=== PATIENT | male | born 1960 | race Caucasian/White ===

== ENCOUNTER 2018-03-22 09:36 | Observation (INO) | payer BC ==
[~2018-03-22 09:36] MED LIST: NS 0.9% 1000 ML* 1,000 ML IV ONE
[2018-03-22] MEDS ORDERED: Alteplase* 100 MG VIAL ONE (09:40)
--- OUTSIDE RECORDS SUMMARY | 2018-03-22 09:44 | XMS REPORT ---
:1960 External Reference #:[id number] Author Organization [facility] Address [address] [place] [address] Phone [phone] Care Team Providers Name Role Phone Mark Anders MD Care Team Information Marketing And Communications Officer Unavailable Mark Anders MD Primary Care Physician Unavailable Payers Type Date Identification Numbers Payment Provider Subscriber Commercial Effective: Policy Number: [id number] [place] Plan Deneen Navas 2017 PayID: [id number] [address] [place] [address] Problems Description No Information Social History Type Date Description Comments Smoking Heavy tobacco smoker (more than 10 has quit for 6 mos in past , did cigarettes/day) not like chantix Allergies, Adverse Reactions, Alerts Date Description Reaction Status Severity Comments 07/20/2017 NKDA active Medications Medication Date Status Form Strength Qnty SIG Indications Ordering Provider Lisinopril Active Tablets 40mg 90tabs 1 by mouth Mark Nice 018 every day MD Martita Rosuvastatin Active Tablets 5mg 90tabs one by E78.2 Mark Nice Calcium 018 mouth Martita lopez MD night at bedtime Amlodipine 0 Active Tablets 10mg 90tabs 1 by mouth Mark Nice Besylate 000 every day MD Martita Lisinopril 0 Hx Tablets 20mg 90tabs 1 by mouth Mark Nice 000 - every day Martita MD Rocha Amlodipine 0 Hx Tablets 5mg 1 by mouth Unknown Besylate 000 - every day 018 Vital Signs Date Vital Result Comment 03/01/2018 BP Systolic 166 mmHg BP Diastolic 102 mmHg Heart Rate 90 /min Body Temperature 98.3 F Respiratory Rate 17 /min Height 72 inches 6'0" Weight 188.25 lb BMI (Body Mass Index) 25.5 kg/m2 01/29/2018 BP Systolic 162 mmHg BP Diastolic 84 mmHg Heart Rate 100 /min Body Temperature 98.4 F Respiratory Rate 16 /min Height 72 inches 6'0" Weight 190.38 lb BMI (Body Mass Index) 25.8 kg/m2 08/21/2017 BP Systolic 152 mmHg BP Diastolic 90 mmHg Heart Rate 100 /min Body Temperature 97.5 F Respiratory Rate 22 /min Height 72 inches 6'0" Weight 194.00 lb BMI (Body Mass Index) 26.3 kg/m2 07/20/2017 BP Systolic 172 mmHg BP Diastolic 74 mmHg Heart Rate 104 /min Body Temperature 97.9 F Height 72 inches 6'0" Weight 194.50 lb BMI (Body Mass Index) 26.4 kg/m2 Results Test Date Test Result H/L Range Note Laboratory test finding 03/01/2018 LDL (Direct) <pending> Laboratory test finding 03/01/2018 HDL <pending> Laboratory test finding 08/21/2017 Alt (SGPT) 34 U/L 7-35 1 LDL, Direct 137 mg/dL High 0-130 1 FASTING Procedures Description No Information Encounters Type Date Location Provider CPT E/M Dx Office Visit 01/29/2018 4:00p Main Office Mago Vanessa [address] R21 I10 Office Visit 08/21/2017 1:30p [facility] [place] [address] E78.2 I10 Office Visit 07/31/2017 2:00p [facility] [place] [address] I10 Office Visit 07/20/2017 2:00p [facility] [place] [address] I10 M79.676 E78.2 Plan of Care Future Appointment(s):09/03/2018 10:20 am - Mark Anders MD at [facility] Zimaub7203/19/2018 10:00 am - Mark Anders MD at [facility] Atjvfr9703/15/2018 10:00 am - Mark Anders MD at [facility] [id number] - Mark Anders MDI10 Essential (primary) itgyhxuwsbrpJ89.2 Mixed ocfcvptwpraltrU61.12 Lateral epicondylitis, left elbowComments:ice massage after exercise/golf.stretch as I showed you.consider aleve, ibuprofen.If this fails to help, I can do injection and get you to OT.AllNew Medication: Lisinopril 40 mgComments:~B_~U_Medication Management~b_~u_ Patient Understands medications he's taking? Yes No Are there Barriers to Adherence? Yes No Has the patient been asked about herbal supplements and therapies, and OTC meds? Yes No
[2018-03-22] MEDS ORDERED: Alteplase* 100 MG VIAL IV ONE ×2 (09:50)
[2018-03-22] MEDS ORDERED: Iodixanol* (CONTRAST) 320 MG/ML 100 ML SDV IV ONE (10:12)
--- NOTE | 2018-03-22 10:13 | RAD ---
Indication: Right-sided weakness, slurred speech. CT of the brain performed without IV contrast. No prior study is available for comparison. Ventricular structures are midline. No midline shift is noted. The extra-axial spaces are unremarkable. There is no evidence of intracranial hemorrhage. Wedge-shaped hypodense area is noted in the left frontal lobe consistent with evolving infarct. No midline shift is noted. The posterior fossa and cerebellum are otherwise unremarkable. Bony calvaria is otherwise unremarkable. IMPRESSION: No intracranial hemorrhage is noted. 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 Findings discussed with Dr. Savage at 10:10 AM.
--- NOTE | 2018-03-22 10:22 | ED ---
Neurological HPI - HPI Summary HPI Summary: This patient is a 57 year old MF BIBA to [facility] accompanied by his with a chief complaint of left sided weakness and facial droop that began this morning at 0845. Pt woke up at 0800 and noticed the sx soon after. Dr Travis is present at bedside as soon as the patient arrived in the ED, he suggested preparing TPA. Patient was brought immediately to CT scan, per his request. He is a smoker , no hx of CVA, and is not on blood thinners. Drinking etoh last night walked to bathroom drunk last night and states he had some possible CVA sx. - History of Current Complaint Chief Complaint: EDNeurologicalDeficit Stated Complaint: CODE CHIANG Time Seen by Provider: 03/22/18 09:37 Hx Obtained From: Patient Onset/Duration: Started hours ago, Still Present Timing: Constant Onset Severity: Mild Current Severity: Mild Pain Intensity: 0 Pain Scale Used: 0-10 Numeric Syncope Context: Loss of Consciousness: No Associated Signs and Symptoms: Positive: Negative - fever - Allergy/Home Medications Allergies/Adverse Reactions: Allergies Allergy/AdvReac Type Severity Reaction Status Date / Time No Known Allergies Allergy Verified 03/22/18 10:14 Home Medications: Home Medications Amlodipine Besylate [Norvasc 10 mg tab] 10 mg PO DAILY 03/22/18 [History Confirmed 03/22/18] Lisinopril 30 mg PO DAILY 03/22/18 [History Confirmed 03/22/18] PMH/Surg Hx/FS Hx/Imm Hx Endocrine/Hematology History: Denies: Hx Blood Transfusions, Hx Systemic Lupus Erythematosus, Hx Unexplained Bleeding Neurological History: Denies: Hx CVA, Hx Dementia, Hx Developmental Delay, Hx Headaches Psychiatric History: Denies: Hx Depression, Hx Inpatient Treatment Infectious Disease History: No Infectious Disease History: Denies: Traveled Outside the [place] in Last 30 Days - Social History Occupation: Employed Full-time Lives: With Family Alcohol Use: Daily Hx Substance Use: No Substance Use Type: Reports: None Hx Tobacco Use: No Smoking Status (MU): Never Smoked Tobacco Review of Systems Negative: Fever, Chills Negative: Erythema Negative: Sore Throat Negative: Chest Pain Negative: Shortness Of Breath, Cough Negative: Abdominal Pain, Vomiting, Nausea Negative: dysuria, hematuria Negative: Myalgia, Edema Negative: Rash Neurological: Negative - dizziness , Other - facial droop Positive: Weakness All Other Systems Reviewed And Are Negative: Yes Physical Exam - Summary Physical Exam Summary: Constitutional: Well-developed, Well-nourished, Alert. (-) Distressed Skin: Warm, Dry HENT: Normocephalic; Atraumatic Eyes: Conjunctiva normal Neck: Musculoskeletal ROM normal neck. (-) JVD, (-) Stridor, (-) Tracheal deviation Cardio: Rhythm regular, rate normal, Heart sounds normal; Intact distal pulses; The pedal pulses are 2+ and symmetric. Radial pulses are 2+ and symmetric. (-) Murmur Pulmonary/Chest wall: Effort normal. (-) Respiratory distress, (-) Wheezes, (-) Rales Abd: Soft. (-) Tenderness, (-) Distension, (-) Guarding, (-) Rebound Musculoskeletal: (-) Edema Lymph: (-) Cervical adenopathy Neuro: Alert, Oriented x3, Strength normal, Cranial nerves II-XII are grossly intact. (-) Dysmetria, (-) Nystagmus, (-) Ataxia by finger to nose testing, (-) Sensory deficit. Psych: Mood and affect Normal Triage Information Reviewed: Yes Vital Signs On Initial Exam: Initial Vitals Temp Pulse Resp BP Pulse Ox 98.3 F 84 20 171/97 96 03/22/18 10:19 03/22/18 10:19 03/22/18 10:19 03/22/18 10:19 03/22/18 10:19 Vital Signs Reviewed: Yes - Mckay Coma Scale Best Eye Response: 4 - Spontaneous Best Motor Response: 6 - Obeys Commands Best Verbal Response: 5 - Oriented Coma Scale Total: 15 Diagnostics - Vital Signs Vital Signs Temp Pulse Resp BP Pulse Ox 03/22/18 10:19 98.3 F 84 20 171/97 96 - Laboratory Result Diagrams: 03/22/18 10:03 03/22/18 10:03 Lab Statement: Any lab studies that have been ordered have been reviewed, and results considered in the medical decision making process. - Radiology CXR Radiology Interpretation Completed By: Radiologist - NO ACTIVE CARDIOPULMONARY DISEASE. ED physician has reviewed this radiology report. - CT CT Head CT Interpretation Completed By: Radiologist - No intracranial hemorrhage is noted. 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 Findings discussed with Dr. Savage at 10:10 AM. ED physician has reviewed this radiology report. - EKG 10:11 Cardiac Rate: NL EKG Rhythm: Sinus Rhythm - at 87 BPM EKG Interpretation: No STEMI NIH Scale - NIH Scale Level of Consciousness: Alert/Keenly Responsive Ask Patient the Month and His/Her Age: Both Correct Ask Pt to Open/Close Eyes and Synthetic Cloth Binding Cutter/Release Non-Paretic Hand: Both Correctly Best Gaze (Only Horizontal Eye Movement): Normal Visual Field Testing: No Visual Loss Facial Paresis-Pt to Smile & Close Eyes or Grimace Symmetry: Normal/Symmetrical Motor Function - Right Arm: No Drift-Holds 10 Seconds Motor Function - Left Arm: No Drift-Holds 10 Seconds Motor Function - Right Leg: No Drift-Holds 10 Seconds Motor Function - Left Leg: No Drift-Holds 10 Seconds Limb Ataxia-Must be out of Proportion to Weakness Present: Absent Sensory (Use Pinprick to Test Arms/Legs/Trunk/Face): Normal Best Language (Describe Picture, Name Items): No Aphasia Dysarthria (Read Several Words): Normal Extinction and Inattention: No Abnormality Total Score: 0 Course/Dx - Course Assessment/Plan: This patient is a 57 year old MF BIBA to [facility] accompanied by his with a chief complaint of left sided weakness and facial droop that began this morning at 0845. Pt woke up at 0800 and noticed the sx soon after. Dr Travis is present at bedside as soon as the patient arrived in the ED, he suggested preparing TPA. Patient was brought immediately to CT scan, per his request. He is a smoker, no hx of CVA, and is not on blood thinners. An EKG reveals NSR. CT head reveals, per radiologist, No intracranial hemorrhage is noted. Evidence of evolving infarct left frontal. lobe. Findings discussed with Dr. Savage at 10:10 AM. CXR reveals, per radiology, NO ACTIVE CARDIOPULMONARY DISEASE. Pt is not a TPA candidate. Alcohol intoxication limited his own recognition of his stroke. Blood work obtained. Dx CVA. 1222 We discussed patient care with Dr Leger and they accepted the patient for admission. 0959 Dr Johnson suggest not using TPA. Patient will be admitted. The patient is agreeable with this plan. - Critical Care Time Critical Care Time: 30-74 min - 35 Discharge - Sign-Out/Discharge Documenting (check all that apply): Patient Departure - admitted - Discharge Plan Condition: Fair Disposition: ADMITTED TO [facility] - Attestation Statements Document Initiated by Scribe: Yes
--- NOTE | 2018-03-22 10:37 | RAD ---
HISTORY: Stroke COMPARISONS: Head CT dated March 22, 2018 TECHNIQUE: Multiple contiguous axial CT scans were obtained of the head and neck after the administration of nonionic intravenous contrast timed to the systemic arterial phase of contrast enhancement. Coronal and sagittal multiplanar reformations are submitted for review. Multiple 3-D maximum intensity projection reconstructions are also submitted for review. FINDINGS: Evaluation is limited by suboptimal contrast opacification. CTA NECK: AORTIC ARCH: There is calcific atherosclerotic disease of the aortic arch, without ostial or proximal stenosis of the cephalic great vessels. There is a normal three-vessel branching pattern. RIGHT VERTEBRAL ARTERY: The right vertebral artery is patent along its course, without stenosis. LEFT VERTEBRAL ARTERY: The left vertebral artery is patent along its course, without stenosis. DOMINANCE: The vertebral arteries are codominant. RIGHT COMMON CAROTID ARTERY: The right common carotid artery is patent. The right carotid bifurcation occurs at C5-C6. RIGHT INTERNAL CAROTID ARTERY: There is no right internal carotid artery stenosis by NASCET criteria. RIGHT EXTERNAL CAROTID ARTERY: The right external carotid artery is unremarkable. LEFT COMMON CAROTID ARTERY: The left common carotid artery is patent. The left carotid bifurcation occurs at C6. LEFT INTERNAL CAROTID ARTERY: There is atherosclerotic plaque of the left internal carotid artery with mild fusiform narrowing of the left internal carotid artery which measures up to 0.2 cm in caliber, without appreciable focal stenosis by NASCET criteria. 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 LEFT EXTERNAL CAROTID ARTERY: The left external carotid artery is unremarkable. VENOUS CIRCULATION: The venous system is unremarkable. SALIVARY GLANDS: The parotid glands, submandibular glands, sublingual glands are normal. NASAL CAVITY/NASOPHARYNX: The nasal cavity and nasopharynx are normal. ORAL CAVITY/OROPHARYNX: The oral cavity is obscured by streak artifact from dental amalgam. The visualized oral cavity and oropharynx are unremarkable. LARYNGEAL APPARATUS/HYPOPHARYNX: The laryngeal apparatus and hypopharynx are normal. UPPER AIRWAY/UPPER ESOPHAGUS: The visualized upper airway and esophagus are normal. LUNG APICES: The lung apices are clear. THYROID GLAND: The thyroid gland is normal. LYMPH NODES: There is no lymphadenopathy by size criteria. BONES AND SOFT TISSUES: Degenerative changes are noted along the spine. CTA HEAD: INTRACRANIAL CIRCULATION: There is attenuation of the contrast enhancement of the M3 branches of the superior vena cava left middle cerebral artery corresponding to the area of left frontal hypoattenuation noted on CT. Elsewhere, there is no aneurysm, vascular malformation, occlusion, or stenosis of the visualized cranial circulation. The anterior communicating artery complex is clear. Bilateral posterior communicating arteries are identified. VENOUS CIRCULATION: The venous system is unremarkable. PERFUSION: There is matched hypoperfusion of the areas of hypoattenuation of the left frontal lobe and anterior parietal lobe. HEMORRHAGE/INFARCT: There is no hemorrhage or acute infarct. MASSES/SHIFT: There is no mass or shift. EXTRA-AXIAL SPACES: There are no extra-axial fluid collections. SULCI AND VENTRICLES: The sulci and ventricles are normal in size and position for the patient's stated age. CEREBRUM: There is wedge-shaped hypoattenuation of the left frontal lobe at the level of the inferior frontal gyrus consistent with subacute nonhemorrhagic infarct. There is a second smaller area of hypoattenuation of the left postcentral gyrus best seen on axial image 27 BRAINSTEM: There are no focal parenchymal abnormalities. CEREBELLUM: There are no focal parenchymal abnormalities. PARANASAL SINUSES: The paranasal sinuses are clear. ORBITS: The orbits are unremarkable. BONES AND SOFT TISSUE: No bone or soft tissue abnormalities are noted. OTHER: There is no abnormal enhancement. IMPRESSION: 1. FINDINGS CONSISTENT WITH SUBACUTE NONHEMORRHAGIC INFARCT INVOLVING THE LEFT FRONTAL LOBE AND ANTERIOR PARIETAL LOBE. THERE IS MATCHING HYPOPERFUSION WITH ATTENUATION OF THE M2 BRANCHES OF THE SUPERIOR DIVISION OF THE LEFT MIDDLE CEREBRAL ARTERY CORRESPONDING TO THE TERRITORY OF HYPOATTENUATION OF THE LEFT FRONTAL LOBE. 2. THERE IS AN INTIMAL FLAP AND PSEUDOANEURYSM FORMATION AT THE LEVEL OF THE CERVICAL-PETROUS JUNCTION OF THE LEFT INTERNAL CAROTID ARTERY CONSISTENT WITH DISSECTION OF UNCERTAIN ACUITY. 3. THERE IS DIFFUSE DECREASED CALIBER OF THE LEFT CERVICAL INTERNAL CAROTID ARTERY PROXIMAL TO THE DISSECTION SUGGESTIVE OF SOME DEGREE OF FLOW LIMITATION. 4. NO RIGHT INTERNAL CAROTID ARTERY STENOSIS BY NASCET CRITERIA. 5. FINDINGS WERE DISCUSSED WITH DR. RAMIREZ AT APPROXIMATELY 10:30 AM ON 2017 CPT II Codes: 3100F
--- NOTE | 2018-03-22 10:40 | RAD ---
HISTORY: Neurological Changes/Code Garcia COMPARISONS: None VIEWS: 1: frontal portable view of the chest at 10:25 AM FINDINGS: LINES AND TUBES: None. CARDIOMEDIASTINAL SILHOUETTE: The cardiomediastinal silhouette is normal for portable technique. PLEURA: The costophrenic angles are sharp. No pleural abnormalities are noted. LUNG PARENCHYMA: The lungs are clear. ABDOMEN: The upper abdomen is clear. There is no subphrenic gas. BONES AND SOFT TISSUES: No bone or soft tissue abnormalities are noted. IMPRESSION: NO ACTIVE CARDIOPULMONARY DISEASE.
[2018-03-22 15:01] LABS: INR 0.93 (0.77-1.02)
[2018-03-22 15:09] LABS: EGFR Non-African American 72.5 (>60); Hematocrit 47 % (42-52); Hemoglobin 16.4 g/dl (14.0-18.0); Mean Corpuscular HGB Conc 35 g/dl (31-36); Mean Corpuscular Hemoglobin 34 pg (27-31); Mean Corpuscular Volume 98 fL (80-94); Red Cell Distribution Width 13 % (10.5-15); White Blood Count 7.1 10^3/ul (3.5-10.8)
--- NOTE | 2018-03-22 16:23 | CONS ---
DICTATION ENDS ABRUPTLY NEUROLOGY CONSULTATION NOTE: DATE OF CONSULT: 03/22/18 CONSULTING PROVIDER: Dr. Sonu Savage. REASON FOR CONSULT: Code Garcia activated for right-sided weakness. CHIEF COMPLAINT: Right-sided weakness. HISTORY OF PRESENT ILLNESS: Mr. Alejandro Herrera is a 57-year-old man, who is right handed, who has a history of alcohol dependency, hypertension, who presented to [facility] with a sudden-onset right hemiparesis. The patient stated that he woke up a few times throughout the night, a total of 2 times, to use the restroom. He had no neurological deficits. He woke up at 8 a.m. feeling a normal state of health. He was last known well at 8:30 a.m. At 8:45, his spouse noted that he has contraction of the right arm and weakness of the right leg with word- finding difficulty. This lasted for approximately 15 minutes. DICTATION ENDS ABRUPTLY [id number]/[facility] #: [id number] [facility] HOSPITALMary Beth
--- NOTE | 2018-03-22 17:21 | RAD ---
HISTORY: CVA COMPARISONS: Head CT dated March 22, 2018 TECHNIQUE: The following sequences were obtained of the head: Sagittal T1-weighted images, axial T2-weighted images, axial FLAIR images, axial susceptibility weighted images, axial T1-weighted images. Additionally, axial diffusion-weighted images were obtained with calculated apparent diffusion coefficients. FINDINGS: HEMORRHAGE/INFARCT: There are punctate areas of restricted diffusion involving the left frontal and parietal lobes consistent with subacute nonhemorrhagic infarct. Elsewhere, there is no hemorrhage or acute infarct. MASSES/SHIFT: There is no mass or shift. EXTRA-AXIAL SPACES/MENINGES: There are no extra-axial fluid collections. SULCI AND VENTRICLES: The sulci and ventricles are normal in size and position for the patient's stated age. CEREBRUM: There is elevated T2/FLAIR signal corresponding to the areas of restricted diffusion. There is left inferior frontal gyrus encephalomalacia consistent with remote infarct. BRAINSTEM: There are no focal parenchymal abnormalities. CEREBELLUM: There are no focal parenchymal abnormalities. The cerebellar tonsils are normal in size and position. SELLA: The sella is normal. PINEAL: The pineal region is clear. CP ANGLE/TEMPORAL BONES: The labyrinthine structures are grossly normal. VESSELS: Normal flow-voids are noted within the visualized vertebral vasculature. DIFFUSION ABNORMALITIES: As noted above, there are scattered small foci of restricted diffusion within the left frontal and parietal lobes. PARANASAL SINUSES/MASTOIDS: The paranasal sinuses are clear. ORBITS: The orbits are unremarkable. BONES AND SOFT TISSUE: No bone or soft tissue abnormalities are noted. OTHER: None IMPRESSION: 1. SCATTERED SMALL FOCI OF RESTRICTED DIFFUSION WITHIN THE LEFT FRONTAL AND PARIETAL LOBES CONSISTENT WITH SUBACUTE NONHEMORRHAGIC INFARCT. THE PATTERN SUGGESTS EMBOLIC DISEASE. 2. LEFT FRONTAL ENCEPHALOMALACIA CONSISTENT WITH REMOTE INFARCT.
--- NOTE | 2018-03-22 18:09 | CONS ---
NEUROLOGY CONSULTATION REPORT: DATE OF CONSULT: 03/22/18 CONSULTING PROVIDER: Dr. Sonu Savage. REASON FOR CONSULT: Activated Code Garcia for right-sided weakness. CHIEF COMPLAINT: Right-sided weakness. HISTORY OF PRESENT ILLNESS: Mr. Herrera is a 57-year-old man, who has history of alcohol dependency and hypertension, who presented with sudden-onset right hemiparesis and word-finding difficulty. The patient was in normal state of health all throughout the night. He woke up a few times to go to the rest room and had no neurological deficits. The patient at 8:30 was seen by his to be in normal state of health. At 8:45, the patient was noticed to have inability to produce words as well as contraction of the right arm. He then developed right leg weakness. This lasted for 15-20 minutes. EMS was contacted and brought to the facility. The patient's symptoms slowly improved while he was in the ED. NIH Stroke Scale initially was 4 for 1 dysarthria, 1 right facial droop, 1 drift on the right arm, and 1 for drift on the right leg. After the CTA, the NIH Stroke Scale was dropped to 1 for right facial droop. CT of the head showed evidence of hypoattenuation and a left middle cerebral artery involving the left frontal as well as small one in the left parietal region. A CTA head and neck with and without contrast showed no large vessel intracranial or internal carotid artery occlusion, but he had a small aortic dissection in the petrous segment of the internal carotid mainly at C2. On presentation, the patient's blood pressure was high around the 219 systolic. He is aspirin naive. PAST MEDICAL HISTORY: Hypertension, alcohol use. PAST SURGICAL HISTORY: Knee surgeries. MEDICATIONS: 1. Lisinopril 30 mg. The patient was on 40 mg in the past, but that caused him to have generalized subjective weakness, thus they decreased the dose to 30 mg. 2. He is on Norvasc 10 mg daily. FAMILY HISTORY: Grandparents suffered from a stroke. His dad of a heart attack. SOCIAL HISTORY: The patient is unemployed. He smokes 1 pack per day for 35 years. He drinks 6-7 beers a day for the last 20 years. REVIEW OF SYSTEMS: Fourteen-point review of system was obtained, otherwise negative except for what was mentioned in the HPI. PHYSICAL EXAM: Vitals: Blood pressure 186/90, pulse of 80, respiratory rate of 16, he is in no pain. General: Well-nourished, well-developed man, in no acute distress. Head is atraumatic, normocephalic without any obvious abnormality. Eyes: Conjunctivae/corneas are clear. Neck is supple and symmetrical with no carotid bruits. Lungs are clear to auscultation bilaterally with nonlabored breathing. Cardiovascular: Regular rate and rhythm with normal S1, S2. Extremities: Normal range of motion with no cyanosis. Skin: No skin lesions or laceration. Psych: Affect is broad and normal mood. Neurological Examination: The patient is awake, alert, oriented to person, place, time, and general circumstances. He initially had slight slurring of speech, but now his speech and language including expression, naming , and repetition, and comprehensions were assessed and found to be normal. Cranial Nerves: Normal confrontation testing bilaterally. Pupils are mid range and reactive to light. Normal consensual response. Extraocular muscles are intact. No ptosis, no conjugate or asymmetrical nystagmus. Sensation is intact on the forehead, cheeks, and jaw region. There is a very slight facial droop on the right with widening of the palpebral fissure. He is able to hear throughout the history process. Symmetrical palatal elevation. Normal strength against should shrug resistance. Tongue is symmetrical and midline with no atrophy or fasciculation. Motor: Right/left, no abnormal movement, there is a mild pronator drift on the right that improved after the patient was lying flat and received IV fluid. Normal bulk and tone throughout. No fasciculation. Neck extension is 5. Shoulder range of motion is full. Shoulder abduction, elbow flexion and extension, wrist flexion and extension, finger flexion and extension, hip flexion and abduction, knee flexion and extension, ankle dorsiflexion and plantar flexion, and great toe extension are 5/5 bilaterally. Reflexes: Right/left, brachioradialis 2/1, biceps 2/1, triceps 2/1, patella 2/1 , ankle 0/0, plantar mute/flexor. Sensation is intact to light touch and pinprick throughout the upper and lower extremities. He has reduced vibratory sensation at the toes at 5 seconds on the right, 6 seconds on the left when proprioception is intact. Coordination: Normal [id number] and rapid alternating movement, but he does have slow rapid alternating movement on the right side. Gait and Station: They were not assessed. DIAGNOSTIC STUDIES/LAB DATA: Laboratory testing pending. Imaging studies as mentioned in the HPI. Labs, imaging, other diagnostic testing as mentioned above. ASSESSMENT: 1. Mr. Herrera is a 57-year-old man with history of hypertension and alcohol dependency, who presented with sudden-onset right hemiparesis and questionable aphasia versus dysarthria. The patient's symptoms have improved. However, he continues to have an NIH Stroke Scale of 1-2. He was found to have left middle cerebral artery vascular territory ischemic infarction involving the left frontal and slightly on the left parietal lobes. The infarction is most likely due to an [id number]-[id number] embolism from proximal left internal carotid artery dissection. The patient has no history of trauma. He is not a candidate for IV tPA due to there is evidence of stroke on the CT head imaging, he has currently no disabling symptoms, and we suspect that the weakness could potentially have been possible seizure due to poststroke seizure with German's paralysis. 2. 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 The patient has no history of any falls or trauma. This is spontaneous. He will need repeat imaging in 3 months to evaluate the resolution of the dissection. I contacted Dr. Barlow from [facility] to obtain further recommendation. Since the patient has a low NIH Stroke Scale, has no significant disabling symptoms, and there is no evidence of large vessel occlusion, the patient does not meet criteria for any endovascular therapy. However, Dr. Barlow would like to personally review the images by self and requested we push over those images to [facility]. I have spoken with Dr. Savage and the community youth secretary in the ED, who will be sending them those imaging. 3. Hypertension. 4. Alcohol dependency. RECOMMENDATIONS: Admit to the hospitalist service for further stroke workup and poststroke monitoring. Neuro checks every 4 hours for the next 24 hours. MRI of the brain without contrast. Obtain a 2D transthoracic echo with bubble study. Place on telemetry. Check a lipid panel, TSH, B12, and A1c level. Please start aspirin 325 mg x1 now and continue aspirin 325 mg daily. We will put him on dual- antiplatelet therapy after 24-48 hours. Keep a systolic blood pressure between 160 to less than 220. Do not treat systolic blood pressure less than 220 for the first 24 hours. Consult PT/OT/INSIDE ACCOUNT REPRESENTATIVE, evaluate and treat. Please do a bedside swallow evaluation. Secondary stroke prevention and stroke education was completed with the patient. He needs to stop smoking. Counseling for smoking cessation was provided. Please do not place a urinary catheter unless there is evidence of urinary retention. DVT prophylaxis subcutaneous heparin injection 5000 units t.i.d. Anticoagulation therapy, no known atrial fibrillation or documented arrhythmia. The literature is controversial regarding anticoagulation therapy versus antiplatelet therapy in patients with aortic dissection. However, the risk of anticoagulation therapy given his acute stroke may increase his risk for developing intracranial hemorrhage and therefore we chose to treat with the antiplatelet therapy. Please start the patient on thiamine oral supplements. He has already received IV fluids with 1 L of normal saline. If he does not pass the swallow evaluation , please start him on normal saline 75 cc an hour for the next 24 hours. I think the patient will swallow given his mild neurological deficits at this point. TIME SPENT: Total critical time 70 minutes assessing the patient for tPA. I also spent greater than 50% of the time obtaining history, examining the patient , reviewing imaging, and discussing the treatment plan with the patient and the primary team. [id number]/[facility] #: [id number] ABY
[2018-03-22 18:56] LABS: ABS Basophils 0.1 10^3/ul (0-0.2); ABS Eosinophils 0.3 10^3/ul (0-0.6); ABS Lymphocytes 1.7 10^3/ul (1.0-4.8); ABS Monocytes 0.8 10^3/ul (0-0.8); ABS Neutrophils 4.2 10^3/ul (1.5-7.7); ABS Nucleated RBC 0 10^3/ul; Eosinophil % 3.6 % (0-6); Lymphocyte % 24.5 % (25-47); Mean Platelet Volume 7.8 um3 (7.4-10.4); Nucleated Red Blood Cells % 0.5; Platelet Count 241 10^3/ul (150-450)
--- NOTE | 2018-03-22 19:23 | HP ---
CC: Dr. Travis; Dr. Anders * ADMISSION HISTORY AND PHYSICAL: DATE OF ADMISSION: 03/22/18 PATIENT OF ADMITTING HOSPITALIST: Dr. Froilan Leger. PRIMARY CARE PHYSICIAN: Dr. Anders. ATTENDING HOSPITALIST WHILE THE PATIENT HERE: Dr. Froilan Leger.* ( DICTATED BY MODE ACOSTA) CHIEF COMPLAINT: Right-sided weakness and slurred speech. HISTORY OF PRESENT ILLNESS: Mr. Herrera is a pleasant 57-year-old gentleman with past medical history significant for hypertension and osteoarthritis, who presented to the emergency room with sudden onset of right-sided weakness and slurred speech that started earlier this morning. The patient notes that he was in his usual state of health and got up this morning, made some coffee and walked outside to smoke. He returned back home, sat on his couch and noticed some foggy sensation with right-sided weakness as well. He dropped some mail and bent over to get it when he noticed right arm and leg weakness. He sat down and he started talking to his an hour later and noticed to have some progressive slurred speech. He denies any similar complaints in the past or any history of TIA or CVA. He does have a family history of stroke in both grandparents as well as family history of coronary artery disease in both his father and brother. His symptoms have worsened as time went this morning and he finally presented to the emergency room in the later morning hours today for further evaluation. He had laboratory workup that revealed normal metabolic panel and normal CBC as well. His CT scan of the head as well as CTA of the head and neck revealed findings consistent with left temporal infarct as well as carotid dissection. The patient eventually felt better upon presentation to the ED and resumed full function of his right arm and leg. He continued to have improved speech and he denies any slurred speech or tingling sensation on his right side. He was seen earlier by Dr. Travis for neurological consultation and recommendation was made for him to start on aspirin and Plavix as of tomorrow after he got a loading dose of aspirin in the ED and also to obtain an MRI of the brain today for further evaluation of his stroke. We were asked to see the patient to consider admission for observation. PAST MEDICAL HISTORY: Significant only for hypertension and osteoarthritis. PAST SURGICAL HISTORY: Significant for right knee meniscus repair as well as left ear surgery. CURRENT MEDICATIONS: His medications at home include: 1. Lisinopril 30 mg p.o. daily. 2. Norvasc 10 mg p.o. daily. ALLERGIES: No known drug allergies. FAMILY HISTORY: As mentioned above, significant for stroke on both his grandparents from paternal side as well as history of coronary artery disease on his father and brother's side. SOCIAL HISTORY: The patient is a current smoker of 1 pack per day. He drinks 5 to 6 alcoholic beverages a day. He is a retired computer scientist, lives with his , who is his surrogate decision maker and her name is Deneen Fraser. He wishes to be a full code. REVIEW OF SYSTEMS: See HPI. Otherwise, 12-point review of systems were examined and they were essentially negative. PHYSICAL EXAMINATION GENERAL: He is a pleasant, healthy-appearing middle-aged gentleman, in no acute distress or discomfort at the time of admission. VITAL SIGNS: Most recent set of vitals with blood pressure of 159/94, pulse of 83, respirations of 20 with O2 sat of 95% on room air, and temperature of 98.3. HEENT: Head is normocephalic, atraumatic. Sclerae anicteric. PERRLA. EOMs intact. Oropharynx is pink and moist. NECK: Supple. Trachea midline. No cervical adenopathy, thyromegaly, or JVD. LUNGS: Clear to auscultation bilaterally. HEART: Regular rate and rhythm. Normal S1 and S2 without rubs, murmurs, or gallops. ABDOMEN: Soft, nontender, and nondistended. No hernias, masses, or hepatosplenomegaly. BACK: With normal curvature and no CVA tenderness. EXTREMITIES: Without cyanosis, clubbing, or edema. NEUROLOGIC: He is awake, alert, and oriented x4. Tongue is midline and handgrip is equal bilaterally. Sensation is intact throughout. NIH Stroke Scale was done and his score was 0. RECTAL: Exam deferred at this time. LABORATORY WORKUP: Currently on the [employer] system, which is down for maintenance. Please review labs in the patient's chart. ACCESSORY DIAGNOSTIC DATA: The patient had a CT scan of the head that revealed evidence of infarct of the left temporal lobe as well as CTA of the head and neck that was consistent with left carotid dissection. IMPRESSION: A 57-year-old gentleman with past medical history significant for hypertension and osteoarthritis, who presented to the emergency room with progressive right arm and leg weakness as well as slurred speech that started this morning and found to have evidence on exam and imaging to have infarct. ASSESSMENT AND PLAN: 1. Cerebrovascular accident. The patient will be admitted to telemetry unit for close observation and neurological checks. Consultation with Dr. Travis has been already obtained in the emergency room and he recommended to maintain his blood pressure above 160 systolic to maintain adequate perfusion to the area of the infarct. He will resume aspirin 81 mg as well as Plavix 75 mg daily starting tomorrow and also recommended an MRI of the brain. The patient appeared to be clinically stable at this time and showed no residual right- sided weakness or numbness. His speech has been improved since his presentation to the emergency room and he had passed his swallowing study as well, for which we will start diet as tolerated. 2. Hypertension. We will hold off his lisinopril and Norvasc for the time being to maintain systolic blood pressure above 160. 3. DVT prophylaxis: The patient will be covered with SCDs for the time being. 4. Code status: He is a full code. TIME SPENT: Approximately 60 minutes were spent admitting this patient, of which greater than 50% on taking history and performing physical exam. I went on and discussed the case with my attending, who agreed to plan of care. MODE ACOSTA [id number]/[facility] #: [id number] ABY
[2018-03-23 07:19] LABS: Hematocrit 45 % (42-52); Hemoglobin 15.6 g/dl (14.0-18.0); Mean Corpuscular HGB Conc 35 g/dl (31-36); Mean Corpuscular Hemoglobin 34 pg (27-31); Mean Corpuscular Volume 98 fL (80-94); Platelet Count 214 10^3/ul (150-450); Red Blood Count 4.57 10^6/ul (4.00-5.40); Red Cell Distribution Width 13 % (10.5-15); White Blood Count 7.1 10^3/ul (3.5-10.8)
[2018-03-23 07:26] LABS: Urine Appearance Clear; Urine Blood 1+ (Negative); Urine Color Yellow; Urine Ketones Negative (Negative); Urine Protein Negative (Negative); Urine Red Blood Cell 1+(3-5/hpf) (Absent); Urine Specific Gravity 1.015 (1.010-1.030); Urine Urobilinogen Negative (Negative); Urine White Blood Cell Trace(0-5/hpf) (Absent)
[2018-03-23 07:39] LABS: EGFR Non-African American 79.4 (>60)
[2018-03-23] MEDS ORDERED: NS 0.9% 1000 ML* 1,000 ML IV SCH (08:45)
[2018-03-23] MEDS ORDERED: Clopidogrel TAB* 75 MG PO SCH (09:00)
[2018-03-23] MEDS ORDERED: Aspirin EC TAB* 81 MG TAB.EC PO SCH (09:00)
--- NOTE | 2018-03-23 13:52 | PN ---
Subjective Date of Service: 03/23/18 Length of Stay: 1 Days Neurology is following Mr. Herrera for the evaluation and management of stroke. Interval History: He is feeling better today. He continues to have right facial droop. He denied any focal weakness or paresthesias. He denied any neck pain, headaches, word finding difficulty, or swallowing dysfunction. Review of Systems: Denied CP, SOB, or palpitations. Objective Active Medications: Aspirin (Aspirin Ec Tab*) 81 mg PO DAILY [facility] Last Admin: 03/23/18 09:07 Dose: 81 mg Atorvastatin Calcium (Lipitor*) 80 mg PO 1700 RONALDO Clopidogrel Bisulfate (Plavix Tab*) 75 mg PO DAILY [facility] Last Admin: 03/23/18 09:07 Dose: 75 mg Vital Signs 03/23/18 11:10 Temperature Pulse Rate 75 Respiratory 17 Rate Blood Pressure 146/92 (mmHg) O2 Sat by Pulse 95 Oximetry Intake and Output Last 24 Hours 03/21/18 03/22/18 03/23/18 03/24/18 06:59 06:59 06:59 06:59 Intake Total 780 45.2 Balance 780 45.2 Weight 190 lb Intake: IV Fluids 45.2 Oral 780 Other: # Bowel Movements 0 # Voids 0 Oxygen Devices in Use Now: None Neurology Exam: General: well nourished, well developed. Alert, cooperative, no apparent distress. HEENT: normocephalic, without obvious abnormality. Conjunctivae/corneas clear. Lungs: non-labored respirations with no wheezing or rhonchi CV: regular rate and rhythm, radial pulses 2+ symmetric. Psych: affect-broad and normal mood. Easy to establish rapport. Neurological examination: Mental status: awake; alert and oriented to person, place, time, & general circumstances. Normal speech and language. Cranial nerves: PERRL, EOM-I. Mild right facial droop. Motor (R/L): Mild pronator drift on the right. Normal tone. Strength (R/L): 5/ 5 bilaterally. Reflexes: symmetric 1+ throughout. Sensation is intact to light touch throughout. Coordination: normal finger to nose and rapid alternating movements. Gait & Station: narrow based; normal stance and gait. No ataxia. Result Diagrams: 03/23/18 06:33 03/23/18 06:33 Assessment/Plan Mr. Alejandro Herrera is a 57-year-old man with history of hypertension, dyslipidemia, tobacco abuse, and alcohol dependency who presented on 03/22/2018 with word finding difficulty and right hemiparesis. The patient's NIHSS immediately improved from 3 to 1 for right facial droop. He was not a candidate for IV tPA due to rapidly improving neurological symptoms and concern that he may have an underlying subacute infarction that was already visualized on CT. CTA head and neck showed evidence of left ICA dissection in the C2 region, confirmed by Dr. Baxter (neuroradiologist). The patient was treated with aspirin for the first 24 hour and started on DAPT today. 1. Acute left MCA vascular territory infarction due to [id number]-[id number]-chifcy emboli from proximal ipsilateral ICA spontaneous dissection- 2. Hypertension 3. Dyslipidemia 4. Tobacco abuse 5. Alcohol dependency. Recommendations: - DAPT with aspirin 81 mg daily and Plavix 75 mg daily for 30 days. Then he can continue with aspirin 81 mg daily - Repeat CTA head and neck in 90 days - Atorvastatin 80 mg nightly - Restart lisinopril 10 mg nightly. He will need to follow-up with his PCP to slowly restart the norvasc or increase the lisinopril if needed. He should check his BP regularly. - Counseled regarding tobacco abuse. He is ready to quit. He will discuss this further with his PCP. - He agreed to reduce his alcohol intake to no more than 2 beers a day. - PT/OT/BRANDING MACHINE TENDER evaluate and treat. He will unlikely require rehabilitation as he has no neurological deficits other than a right facial droop. - Pending TTE with bubble study. If negative, the patient can be cleared to be discharged home. Follow-up with Dr. Watson in 4 weeks. We will arrange a follow-up appointment.
[2018-03-23] MEDS ORDERED: Nicotine Inhaler* 10 MG AMP INH PRN (15:02)
[2018-03-23] MEDS ORDERED: Mouth Piece, Nicotine* 1 EACH CARTRIDGE INH PRN ×2 (15:02)
[2018-03-23 16:03] VITALS: BP 156/80
[2018-03-23] MEDS ORDERED: Atorvastatin* 80 MG TAB PO SCH (17:00)
[2018-03-23] MEDS ORDERED: Lisinopril TAB* 10 MG PO SCH (17:00)
--- NOTE | 2018-03-23 17:59 | ECHO ---
Patient: MABEL DAMON [facility] Rec#: [id number] : 1960 Date: 03/23/2018 Age: 57y Height: 183 cm / 72.0 in Weight: 86.18 kg / 189.9 lbs Sex: M BSA: 2.09 Room#: [facility] Admit Date#: 03/22/2018 Type: Inpatient Referring: Oz Luna Reading: Hao Wu MD Hand Brim Ironer: Latonia Goyal RDCS CC: Mark Sheikh Transthoracic Echocardiogram Indication: CVA BP: 146/92 HR: 73 Rhythm: NSR Findings History: HTN, osteoarthritis. Technical Comments: The study quality is fair. Completed at 1515. Left Ventricle: The left ventricular chamber size is normal. Mild concentric left ventricular hypertrophy is observed. Global left ventricular wall motion and contractility are within normal limits. There is normal left ventricular systolic function. The estimated ejection fraction is 55-60%. Abnormal left ventricular diastolic function is observed. Abnormal left ventricular diastolic filling is observed, consistent with impaired relaxation. Left Atrium: The left atrium is mildly dilated. Right Ventricle: Moderator Band present. The right ventricular cavity size is normal. The right ventricular global systolic function is normal. Right Atrium: The right atrial cavity size is normal. Interatrial septum appears intact without evidence of shunting. The bubble study is negative. A patent foramen ovale is not demonstrated with color Doppler and agitated contrast. Aortic Valve: The aortic valve is trileaflet. The aortic valve leaflets are mildly thickened. There is no evidence of aortic regurgitation. There is no evidence of aortic stenosis. Mitral Valve: The mitral valve leaflets are mildly thickened. There is a trace of mitral regurgitation. There is no evidence of mitral stenosis. Tricuspid Valve: The tricuspid valve leaflets are normal. There is trace tricuspid regurgitation. Unable to estimate the right ventricular systolic pressure. There is no tricuspid stenosis. Pulmonic Valve: The pulmonic valve appears normal. There is a trace pulmonic regurgitation. There is no pulmonic stenosis. Pericardium: There is no significant pericardial effusion. Aorta: There is mild dilatation of the ascending aorta. The aortic arch is not well visualized. There is mild dilatation of the aortic root. Pulmonary Artery: The main pulmonary artery appears normal. Venous: The inferior vena cava appears normal in size. There is a greater than 50% respiratory change in the inferior vena cava dimension. Contrast: Normal saline was used as contrast for the bubble study. Images 18 and 19. Intravenous contrast was used to help determine presence of intracardiac shunting. Summary: There was not any prior study for comparison. Conclusions Mild concentric left ventricular hypertrophy is observed. The estimated ejection fraction is 55-60%. Abnormal left ventricular diastolic filling is observed, consistent with impaired relaxation. The left atrium is mildly dilated. Interatrial septum appears intact without evidence of shunting. The bubble study is negative. A patent foramen ovale is not demonstrated with color Doppler and agitated contrast. The aortic valve leaflets are mildly thickened. There is mild dilatation of the ascending aorta. There is mild dilatation of the aortic root. No significant valve lesions. Measurements Name Value Normal Range RVIDd (AP) 2D 3 cm (0.9 - 2.6) RVDdMajor (2D) 4.2 cm (2.2 - 4.4) RAd ISD 4CH 4.4 cm (3.4 - 4.9) RA (A4C)W 4.3 cm (2.9 - 4.6) IVSd (2D) 1.1 cm (0.6 - 1) LVPWd (2D) 1.1 cm (0.6 - 1) LVIDd (2D) 4.7 cm (3.6 - 5.4) LVIDs (2D) 3.2 cm - LV FS (2D) 33 % (25 - 45) Aortic Annulus 2.2 cm (1.4 - 2.6) Ao root diameter (2D) 3.8 cm (2.1 - 3.5) Ascending Ao 3.9 cm (2.1 - 3.4) LA dimension (AP) 2D 4 cm (2.3 - 3.8) LAd ISD 4CH 5.3 cm (2.9 - 5.3) LA ISD 4CH W 3.8 cm (2.5 - 4.5) Name Value Normal Range LA ESV BP (A/L) index 36 ml/m2 - Name Value Normal Range MV E-wave Vmax 0.6 m/sec - MV deceleration time 218 msec - MV A-wave Vmax 0.8 m/sec - MV E:A ratio 0.7 ratio - LV septal e' Vmax 0.08 m/sec - LV lateral e' Vmax 0.1 m/sec - LV E:e' septal ratio 7.5 ratio - LV E:e' lateral ratio 6 ratio - Name Value Normal Range AV Vmax 1.3 m/sec - AV VTI 23 cm - AV peak gradient 6 mmHg - AV mean gradient 3 mmHg - LVOT Vmax 1.1 m/sec - LVOT VTI 20.6 cm - LVOT peak gradient 5 mmHg - LVOT mean gradient 3 mmHg - YENNY Vmax 0.5 m/sec - Name Value Normal Range IVC diameter 2 cm - Name Value Normal Range PV Vmax 1 m/sec - PV peak gradient 4 mmHg -
--- NOTE | 2018-03-25 07:20 | DS ---
CC: Dr. Mark Anders * DISCHARGE SUMMARY: DATE OF ADMISSION: 03/22/18 DATE OF DISCHARGE: 03/23/18 PRIMARY CARE PROVIDER: Mark Anders MD. MY ATTENDING WHILE IN THE HOSPITAL: Martina Rice MD.* (DICTATED BY MODE LOW) PRIMARY DISCHARGE DIAGNOSES: 1. Cerebrovascular accident, likely [id number] embolization. 2. Carotid dissection, spontaneous. SECONDARY DISCHARGE DIAGNOSES: 1. Tobacco abuse. 2. Hypertension. 3. Hyperlipidemia. 4. Osteoarthritis. STUDIES DONE WHILE IN THE HOSPITAL: Brain CT from 03/22/18 read as no intracranial hemorrhage, evidence of evolving infraction left frontal lobe. Chest x-ray from 03/22/18 read as no active cardiopulmonary disease. Head CTA read as findings consistent with subacute nonhemorrhagic infarct involving the left frontal lobe, anterior parietal lobe with matching hypoperfusion with the attenuation of 2 branches, superior division of the left middle cerebral artery corresponding to this territory of hypoattenuation, left frontal lobe. There is an intimal flap and pseudoaneurysm formation at the level of the cervical- petrous junction at the left internal carotid artery consistent with dissection of uncertain acuity. There is diffuse decreased caliber of the left cervical internal carotid artery proximal to the dissection, excessive, some degree of flow limitation. No right internal carotid artery stenosis by NASCET criteria. Findings discussed with Dr. Travis at approximately 10:30 a.m. on 03/22/18. Brain MRI on 03/22/18 read as scattered small foci of restricted diffusion within left frontal and parietal lobes consistent with subacute hemorrhagic infarct, left frontal encephalomalacia consistent with remote infarct. Transthoracic echocardiogram from 03/23/18 read as mild concentric left ventricular hypertrophy was observed, estimated ejection fraction is 55% to 60% , abnormal ventricular diastolic filling was observed consistent with impaired relaxation. Left atrium is mildly dilated. Interatrial septum appears intact without evidence of shunting, bubble study negative. Patent foramen ovale is not demonstrated by color Doppler agitated contrast. Aortic valve leaflets are mildly thickened. There is mild dilatation of the ascending aorta, there is some dilatation of the aortic root. There are no significant valve lesions. MEDICATIONS AT DISCHARGE: 1. Lisinopril 10 mg p.o. daily. 2. Clopidogrel 75 mg p.o. daily. 3. Atorvastatin 80 mg p.o. daily. 4. Aspirin 81 mg p.o. daily. 5. Nicotine inhaler 10 mg inhalation q.2 hours as needed. 6. Amlodipine 10 mg p.o. daily, to be resumed based on blood pressure. 7. Lisinopril 30 mg p.o. daily, to be resumed on the day after discharge. HOSPITAL COURSE: This is a brief summary of the patient's presentation. For more details, please see the history and physical from Jane Ramos on 03/22 as well as the consultation from Dr. Andre Travis on 03/22/18. In brief, the patient is a 57-year-old male with a past medical history significant only for the above who presented with sudden onset right hemiparesis and word finding difficulty on the day of presentation. The patient's last known well was 15 minutes before his presenting weakness. The patient was brought to the facility by EMS. NIH stroke scale of 4. The patient's deficits quickly resolved. The patient had evidence of hypoattenuation already on his CT so he is not deemed to be a tPA candidate. The patient was started on dual- antiplatelet therapy. After approximately 24 hours, the patient had initial dose of aspirin at 325 mg. The patient had a CTA consistent with dissection. As above, the patient was not recommended for anticoagulation. Patient passed the swallow evaluation. The patient's blood pressure was initially markedly elevated and trended down to approximately 150/80 without intervention. The patient's workup was completed as above on 03/23/18. The patient had no residual neurological deficit except for a possible right facial droop. The patient had no significant weakness, headaches, or other symptoms. The patient had a lipid profile, which showed an LDL cholesterol of 138. The patient was started on atorvastatin, high dose, 80 mg daily. The patient's carotid dissection was not deemed to need emergent intervention. The patient was instructed to have a repeat CTA of the head and neck in 90 days. The patient was counseled on his tobacco abuse and he stated he was ready to quit. The patient was stable and amenable for discharge on 03/23/18. PHYSICAL EXAMINATION ON THE DAY OF DISCHARGE: General: The patient is a 57- year- old male who appears stated age and sitting comfortably in the bed, in no acute distress. Vital Signs: Temperature 98.0, pulse rate 79, respiratory rate 18, oxygen saturation 97% on room air, blood pressure 156/80. HEENT: Head : Normocephalic, atraumatic. Sclerae anicteric. No conjunctival injection. Nasal mucosa is moist. Oral mucosa is moist. No pharyngeal erythema, discharge , or exudate. Neck: Supple, nontender. No lymphadenopathy. No carotid bruits auscultated. No JVD. Cardiac: Regular rate and rhythm. No clicks, murmurs, gallops, or rubs. Pulses 2+ in the bilateral dorsalis pedis, posterior tibialis , and radial areas. Respiratory: Clear to auscultation bilaterally. No wheezes, rales, or rhonchi. Good air exchange bilaterally. Abdomen: Soft, nontender, nondistended. Bowel sounds present. Normoactive in all 4 quadrants. No hepatosplenomegaly. No abdominal bruits auscultated. No hepatojugular reflux. Genitourinary: No suprapubic or CVA tenderness. Skin: Clean, dry, intact. No rash. Neuro: Slight right-sided facial droop. Cranial nerves II through XII intact. No focal deficits. Alert and oriented x3. Normal gait. Reflexes 2+ in the bilateral biceps, patella, and 1+ bilateral Achilles areas. . Babinski's downgoing bilaterally. Cerebellar testing performed without difficulty. LABORATORY DATA ON THE DAY OF DISCHARGE: White blood cell count 7.1, hemoglobin 15.6, hematocrit 45, platelet count 214. Sodium 139, potassium 4.6, chloride 100, carbon dioxide 32, anion gap 7, BUN 50, creatinine 0.98, glucose 112. Calcium 9.4. DISCHARGE PLAN: The patient is ready for discharge to home. The patient will slowly up titrate his blood pressure medications as needed for maintaining his systolic blood pressure below 140. The patient was previously on lisinopril 30 mg daily and amlodipine 10 mg p.o. daily. The patient will take his blood pressure twice daily and take these readings to his primary care provider's office. The patient will follow up with his primary care provider as soon as possible for management of his blood pressure and other general medical management, including discussing smoking cessation. The patient has since been prescribed a nicotine inhaler for nicotine replacement. The patient has been counseled on the benefits of smoking cessation and alcohol reduction. The patient will be continued on dual- antiplatelet therapy with clopidogrel for 30 days and aspirin ongoing. The patient should follow up with Dr. Watson of Neurology in 4 weeks for monitoring of his neurologic deficits as well as for other closer management for secondary prevention of stroke. The patient should have a repeat CTA in 90 days which will be set up through the neurology office. The patient should have a heart-healthy diet without caffeine and engage in activities as tolerated. TIME SPENT: Approximately 60 minutes was spent on this discharge of this patient, 30 of which was spent [id number] with the patient obtaining history and physical and discussing treatment plan. MODE LOW [id number]/[facility] #: [id number] ABY
== END 2018-03-23 19:30 | disposition home or self-care (01) ==
LOC: ED 09:36 → MEDTELE 15:35
PROVIDERS: ADMIT Student in an Organized Health Care Education/Training Program; ATTEND Internal Medicine
DX: I63.9 Cerebral infarction, unspecified (principal); I77.71 Dissection of carotid artery; I10 Essential (primary) hypertension; E78.5 Hyperlipidemia, unspecified; M19.90 Unspecified osteoarthritis, unspecified site; I51.7 Cardiomegaly; F17.210 Nicotine dependence, cigarettes, uncomplicated; Z79.82 Long term (current) use of aspirin; Z79.01 Long term (current) use of anticoagulants; F10.20 Alcohol dependence, uncomplicated; Z79.899 Other long term (current) drug therapy
CPT/HCPCS: 36415; 70450; 70496; 70498; 70551; 71045; 80048; 80053; 80061; 80320; 81003; 81015; 83605; 84484; 85025; 85027; 85610; 85730; 86850; 86900; 86901; 87086; 93005; 93306; 96360; 96361; 99285; A9270-GY; G0378; G0480; J2997; Q9967